=== PATIENT | male | born 1955 | race Caucasian/White ===

== ENCOUNTER → 2019-02-25 | Outpatient (CLI) | payer OTHER ==
[~2019-02-25] MED LIST: REGADENOSON 0.4 MG/5 ML DISP.SYRIN. IV ONE
--- NOTE | 2019-02-25 13:16 | PCVCIMAG ---
APPROVED REPORT Study performed: 02/25/2019 08:01:33 EXAM: Comprehensive 2D, Doppler, and color-flow Echocardiogram [facility] BSA: 2.37 HR: 64 bpmBP: 142/84 mmHg Rhythm: NSR Other Information Study Quality: Adequate Risk Factors: Cardiac Risk Factors: HTN Indications Pre-Op CAD 2D Dimensions IVSd: 14.69 (7-11mm)LVOT Diam: 22.00 (18-24mm) LVDd: 44.65 mm PWd: 11.47 (7-11mm)Ascending Ao: 35.18 (22-36mm) LVDs: 32.22 (25-40mm) Left Atrium: 41.64 (27-40mm) Aortic Root: 33.69 mm LV Single Plane 4CH: 53.64 % LV Single Plane 2CH: 66.23 % Biplane EF: 60.1 % Volumes Left Atrial Volume (Systole) Single Plane 4CH: 63.02 mLSingle Plane 2CH: 54.86 mL LA ESV Index: 26.00 mL/m2 Aortic Valve AoV Peak John.: 1.65 m/s AO Peak Gr.: 10.94 mmHgLVOT Max P.73 mmHg LVOT Max V: 1.09 m/s FLY Vmax: 2.60 cm2 Mitral Valve E/A Ratio: 0.8 MV Decel. Time: 212.63 ms MV E Max John.: 0.76 m/s MV A John.: 0.99 m/s IVRT: 69.20 ms TDI E/Lateral E': 10.86E/Medial E': 12.67 Medial E' John.: 0.06 m/s Lateral E' John.: 0.07 m/s Pulmonary Valve PV Peak John.: 1.10 m/sPV Peak Gr.: 4.84 mmHg TX End Vmax: 1.01 m/s Pulmonary Vein P Vein S: 0.69 m/sP Vein A: 0.40 m/s P Vein D: 0.67 m/sP Vein A Dur.: 86.5 msec P Vein S/D Ratio: 1.03 Tricuspid Valve TR Peak John.: 2.51 m/sRAP Estimate: 7.00 mmHg TR Peak Gr.: 25.29 mmHg PA Pressure: 32.00 mmHg Left Ventricle The left ventricle is normal size. There is normal LV segmental wall motion. Mild to moderate concentric left ventricular hypertrophy. Left ventricular systolic function is normal. The left ventricular ejection fraction is within the normal range. LVEF is 55-60%. Mild diastolic dysfunction is present (impaired relaxation pattern). Right Ventricle Right ventricle is borderline dilated. The right ventricular systolic function is normal. Atria The left atrium size is normal. Right atrium is dilated. Aortic Valve The aortic valve is normal in structure. No aortic regurgitation is present. There is no aortic valvular stenosis. Mitral Valve The mitral valve is normal in structure. Mild mitral regurgitation. No evidence of mitral valve stenosis. Tricuspid Valve The tricuspid valve is normal in structure. Mild tricuspid regurgitation. Pulmonic Valve The pulmonary valve is normal in structure. Mild pulmonic regurgitation. Great Vessels The aortic root is normal in size. The ascending aorta is normal in size. IVC is normal in size and collapses >50% with inspiration. Pericardium There is no pericardial effusion. <Conclusion> The left ventricle is normal size. LVEF is 55-60%. Right ventricle is borderline dilated. Right atrium is dilated. The aortic valve is normal in structure. The mitral valve is normal in structure. Mild mitral regurgitation. The tricuspid valve is normal in structure. Mild tricuspid regurgitation. The pulmonary valve is normal in structure. Mild pulmonic regurgitation. There is no pericardial effusion.
--- NOTE | 2019-02-25 19:26 | PCVCIMAG ---
APPROVED REPORT Imaging Protocol: Rest Tc-99m/Stress Tc-99m 1 day Study performed: 02/25/2019 09:21:53 Indication: Pre-Operative CV evaluation, CAD Patient Location: Out-Patient Stress Nurse: Paige Hardwick RN, Rosa Montes RN [place] Tech:Rach Birmingham [facility] Ht: 6 ft 3 in Wt: 245 lbs BSA: 2.39 m2 HR: 58 bpm BP: 166/80 mmHg BMI: 30.61 Rhythm: Normal Sinus Rhythm Medical History Medical History: HTN Medications: Amlodipine, Enalapril, Mobic, Singulair, Paxil, Crestor Allergies: No known drug allergies Cardiac Risk Factors: Age Pretest Chest Pain Characteristics: No chest pain Exercise History: Indeterminate Physical Disabilities: Knees Resting Data Rest SPECT myocardial perfusion imaging was performed in supine position 45 minutes following the intravenous injection of 10.2 mCi of Tc-99m Sestamibi. Time of rest injection: 0830 Date: 02/25/2019 Administration Route: IV Administration Site: Right AC Pharmacologic Stress Pharmacologic stress test was performed by injecting Regadenoson 0.4 mg IV push over 10-15 seconds immediately followed by the intravenous injection of 32.7 mCi of Tc-99m Sestamibi. Time of stress injection: 1000 Date: 02/25/2019 Administration Route: IV Administration Site: Right AC Gated Stress SPECT was performed 45 minutes after stress injection. The images were gated to evaluate regional wall motion and calculate left ventricular ejection fraction. Stress Test Details Stress Test: Pharmacologic stress testing performed using 0.4 mg of regadenoson per 5 mL given IV over 10 seconds. Reason for pharmacologic stress test: physical limitation, knee issues. HRMax Heart Rate (APMHR): 156 bpm Resting HR: 58 bpmTarget HR (85% APMHR): 132 bpm Max HR Achieved: 87 bpm % of APMHR: 55 Recovery HR: 62 bpm BP Resting BP: 166/80 mmHg Max BP: 150/93 mmHg Recovery BP: 149/87 mmHg ECG Resting ECG: Sinus Rhythm Stress ECG: Sinus Rhythm Arrhythmia: PVC's Recovery ECG: Sinus Rhythm Clinical Reason for Termination: Completed protocol Stress Symptoms: Dyspnea Symptoms resolved with caffeine. Stress ECG Conclusion 1. adequate response to iv lexiscan 2. inadequate heart rate for ecg diagnosis Study Data Post stress, the left ventricular ejection was 56%.. SSS: 1 SRS: 0 SDS: 1 TID = 1.02. Perfusion There is a medium area of moderately reduced uptake in the mid and apical segment of the anterior wall which is seen on the stress images and improves on the resting images. This area thickens and moves normally and is most consistent with mild ischemia or attenuation artifact. Wall Motion Normal left ventricular wall motion. Nuclear Conclusion ECG Findings: non-diagnostic Clinical Findings: negative for ischemia Nuclear Findings: equivocal Exercise Capacity: not assessed Left Ventricular Function: normal 1. intermediate risk study based on partial reversibility of an anteroapical defect <Conclusion> 1. adequate response to iv lexiscan 2. inadequate heart rate for ecg diagnosis
== END | disposition home or self-care (01) ==
LOC: PCVCIMAG 08:38
PROVIDERS: ATTEND Internal Medicine
DX: Z01.810 Encounter for preprocedural cardiovascular examination (principal); I08.8 Other rheumatic multiple valve diseases; I25.10 Atherosclerotic heart disease of native coronary artery without angina pectoris; I42.9 Cardiomyopathy, unspecified; I10 Essential (primary) hypertension; E78.00 Pure hypercholesterolemia, unspecified
CPT/HCPCS: 78452; 93017; 93306; A9500; J2785